=== PATIENT | male | born 1955 | race Caucasian/White ===

== ENCOUNTER 2016-12-09 09:27 | Emergency (ER) | payer BC ==
[2016-12-09 09:35] VITALS: BMI 18.8
[2016-12-09 09:37] VITALS: BP 110/70; PULSE 107; RESP 18; TEMP 97.5; O2SAT 97
[2016-12-09] MEDS ORDERED: Lidocaine 1% Inj (20ml) ONE (10:18)
--- NOTE | 2016-12-09 10:40 | ED PDOC ---
HPI: General Adult Time Seen by Provider: 12/09/16 10:10 Chief Complaint (Nursing): Abnormal Skin Integrity Chief Complaint (Provider): fall, lip laceration History Per: Patient Additional Complaint(s): 61-year-old male presents to emergency department for evaluation status post fall. Patient states he was running when he tripped and hit face and chest against the ground. Patient sustained upper lip laceration. He also sustained abrasions to right hand. Patient denies loss of consciousness. He denies any loose teeth. Tetanus is up-to-date. Patient has been able to walk without limitation since time of fall. He has slight chest discomfort from impact of fall, no shortness of breath. Past Medical History Reviewed: Historical Data, Nursing Documentation, Vital Signs Vital Signs: Last Vital Signs Temp 97.5 F L 12/09/16 09:35 Pulse 107 H 12/09/16 09:35 Resp 18 12/09/16 09:35 BP 110/70 12/09/16 09:35 Pulse Ox 97 12/09/16 12:01 - Medical History PMH: No Chronic Diseases - Family History Family History: States: No Known Family Hx - Living Arrangements Living Arrangements: With Family - Social History Current smoker - smoking cessation education provided: No Alcohol: None Drugs: Denies - Immunization History Hx Tetanus Toxoid Vaccination: Yes (2016) - Allergies Allergies/Adverse Reactions: Allergies Allergy/AdvReac Type Severity Reaction Status Date / Time No Known Allergies Allergy Verified 12/09/16 10:30 Review of Systems ROS Statement: Except As Marked, All Systems Reviewed And Found Negative ENT: Positive for: Other (upper lip laceration s/p fall) Cardiovascular: Positive for: Chest Pain (due to impact of fall) Respiratory: Negative for: Shortness of Breath Gastrointestinal: Negative for: Nausea, Vomiting Musculoskeletal: Positive for: Other (abrasions to right hand) Neurological: Positive for: Other (denies LOC) Physical Exam - Reviewed Nursing Documentation Reviewed: Yes Vital Signs Reviewed: Yes - Physical Exam Appears: Positive for: Well, Non-toxic, No Acute Distress Head Exam: Positive for: ATRAUMATIC, NORMAL INSPECTION Skin: Negative for: Rash Eye Exam: Positive for: Normal appearance, EOMI, PERRL ENT: Positive for: Other (1 cm flap laceration noted to upper lip, not involving vermilion border, mild active bleeding, this is not a through and through laceration, dentition intact with no acute dental fractures, additional very superficial upper lip laceration noted to mucosal surface with no active bleeding) Neck: Positive for: Normal, Painless ROM. Negative for: Pain On Movement Of Neck Cardiovascular/Chest: Negative for: Chest Non Tender (Slight tenderness to anterior chest wall with no palpable bony deformities, swelling or ecchymosis, and right and lateral chest call nontender) Respiratory: Positive for: Normal Breath Sounds. Negative for: Respiratory Distress Back: Negative for: L CVA Tenderness, R CVA Tenderness, Vertebral Tenderness Extremity: Positive for: Normal ROM, Other (Superficial abrasions noted to dorsum of right hand with full range of motion of all digits as well as right wrist, mild contusion right patella with full range of motion). Negative for: Pedal Edema Neurologic/Psych: Positive for: Alert, photonics technician II-XII (grossly intact), Oriented, Gait (steady). Negative for: Motor/Sensory Deficits, Aphasia, Facial Droop - ECG O2 Sat by Pulse Oximetry: 97 Pulse Ox Interpretation: Normal - Other Rad CXR and Sternum X-ray X-Ray: Interpreted by Me, Viewed By Me X-Ray Interpretation: no acute finding, no fx, no dis Medical Decision Making Medical Decision Makin61 year old male here for eval s/p fall Plan: Repair of upper lip laceration CXR and Sternum x-ray Pain meds declined Procedure Note: Under sterile conditions laceration to upper lip was cleansed with normal saline, 5 cc of 1% lidocaine without epinephrine were used to anesthetize the wound locally, good anesthesia was achieved. Wound was further irrigated with normal saline, 3 simple interrupted 5-0 chromic sutures were used to repair wound, good wound approximation was achieved, good bleeding control was achieved, Steri-Strips were applied overlying sutured. wound. Procedure was tolerated well by patient with no acute complications. Patient aware of x-ray results. All questions answered. He was instructed to take NSAIDs for pain as needed. Patient advised to follow up with primary doctor in 1-2 days. Wound care instructions provided. Patient also aware he can return to ED if acutely worse at any time. Disposition - Clinical Impression Clinical Impression: Accidental fall, Lip laceration, Hand abrasion, Chest wall contusion Counseled Patient/Family Regarding: Diagnosis, Need For Followup - Disposition Referrals: Pacheco Abbasi MD [Medical Doctor] - Disposition: Routine/Home Disposition Time: 10:45 Condition: STABLE Additional Instructions: Keep wound clean and dry. Apply bacitracin once per day. Sutures will dissolve on their own. Tylenol for pain as needed. Follow-up with primary doctor in 1-2 days or return to ED any time if acutely worse. Instructions: Laceration (ED), Contusion in Adults (ED), Abrasion (ED), Care For Your Absorbable Stitches (ED) Forms: [employer] (Kiswahili)
--- NOTE | 2016-12-09 12:57 | RAD ---
HISTORY: COMPARISON: No prior. TECHNIQUE: Chest PA and lateral FINDINGS: LINES AND TUBES: None. LUNG AND PLEURA: The lungs are well inflated. There is a 6 mm nodular opacity in the left upper lobe. HEART AND MEDIASTINUM: The heart is not enlarged. The hilar and mediastinal contours are within normal limits. SKELETAL STRUCTURES: There is an S-shaped scoliosis in the thoracolumbar spine. VISUALIZED UPPER ABDOMEN: Normal. OTHER FINDINGS: None. IMPRESSION: No acute findings. 6 mm nodular opacity in the left upper lobe which may represent an end on vessel however a dedicated CT scan without intravenous contrast is recommended for further characterization.
--- NOTE | 2016-12-09 12:58 | RAD ---
PROCEDURE: Radiographs of the sternum HISTORY: trauma COMPARISON: None TECHNIQUE: AP and lateral radiographs of the sternum were obtained. FINDINGS: There is no acute displaced fracture or bone destruction. Bone alignment is normal. Bone mineralization is normal. There is no presternal soft tissue swelling. IMPRESSION: No acute displaced fracture.
== END 2016-12-09 12:20 | disposition home or self-care (01) ==
LOC: H.ER 09:27
DX: S01.511A Laceration without foreign body of lip, initial encounter (principal); S60.511A Abrasion of right hand, initial encounter; S20.219A Contusion of unspecified front wall of thorax, initial encounter; W01.0XXA Fall on same level from slipping, tripping and stumbling without subsequent striking against object, initial encounter; Y93.02 Activity, running